=== PATIENT | female | born 1990 | race Caucasian/White ===

== ENCOUNTER → 2016-10-24 | Outpatient (CLI) | payer OTHER ==
[~2016-10-24] MED LIST: COLACE100 MG PO
[2016-10-24 15:31] LABS: HEMOGLOBIN 13.8 gm/dl (12.3-15.3); RED BLOOD COUNT 4.51 M/UL (4.00-5.10); WHITE BLOOD COUNT 10.9 K/UL (4.5-11.0)
[2016-10-24 15:54] LABS: BUN/CREATININE RATIO 15 (0-10)
== END ==
LOC: US 14:24
PROVIDERS: Nurse Practitioner Family
DX: Z13.29 Encounter for screening for other suspected endocrine disorder (principal); R00.2 Palpitations; F41.1 Generalized anxiety disorder
CPT/HCPCS: 36415; 76536; 80053; 84443; 85027

== ENCOUNTER → 2020-08-18 | Outpatient (CLI) | payer OTHER ==
[~2020-08-18] MED LIST changes: +CRANBERRY SUPPLEMENT PO; +ESTRADIOL1 MG PO; +KLONOPIN1 MG PO; +LINZESS145 MCG PO; +NORCO 10-325 T1 EACH PO; +OMEPRAZOLE20 M1 PO; +RIZATRIPTAN10 MG PO; +ZOFRAN4 MG PO; +ZOLOFT50 MG PO
== END ==
LOC: KOH-I 08-11 14:30
DX: G43.909 Migraine, unspecified, not intractable, without status migrainosus (principal); R51.9 Headache, unspecified; R11.0 Nausea
CPT/HCPCS: 70551

== ENCOUNTER 2022-01-22 09:04 | Emergency (ER) | payer OTHER ==
[2022-01-22 11:29] LABS: HEMOGLOBIN 13.5 gm/dl (12.3-15.3); RED BLOOD COUNT 4.48 M/UL (4.00-5.10); WHITE BLOOD COUNT 15.4 K/UL (4.5-11.0)
[2022-01-22 11:30] LABS: BUN/CREATININE RATIO 16 (0-10)
[2022-01-22] MEDS ORDERED: BENTYL 20MG TAB20 MG PO (13:16)
[2022-01-22] MEDS ORDERED: ZOFRAN ODT 4 MG4 MG PO (13:16)
== END 2022-01-22 14:09 | disposition home or self-care (01) ==
LOC: ER1 09:04
PROVIDERS: Physician Assistant
DX: G43.909 Migraine, unspecified, not intractable, without status migrainosus (principal); K52.9 Noninfective gastroenteritis and colitis, unspecified; E78.5 Hyperlipidemia, unspecified; K21.9 Gastro-esophageal reflux disease without esophagitis; Z88.6 Allergy status to analgesic agent; Z20.822 Contact with and (suspected) exposure to COVID-19
CPT/HCPCS: 80053; 81001; 83690; 85025; 96374; 96375; 99284; J1100; J1200; J2704; J2765; Q9967; U0002

== ENCOUNTER 2022-03-27 09:22 | Emergency (ER) | payer OTHER ==
[~2022-03-27 09:22] MED LIST changes: +BENTYL 20MG TAB20 MG PO; +ZOFRAN ODT 4 MG4 MG PO
[2022-03-27 10:28] LABS: HEMOGLOBIN 13.8 gm/dl (12.3-15.3); RED BLOOD COUNT 4.5 M/UL (4.00-5.10); WHITE BLOOD COUNT 14.5 K/UL (4.5-11.0)
[2022-03-27] MEDS ORDERED: CEPHALEXIN500 M1 PO (10:45)
== END 2022-03-27 10:56 | disposition home or self-care (01) ==
LOC: ER1 09:22
PROVIDERS: Nurse Practitioner
DX: L03.012 Cellulitis of left finger (principal); F17.200 Nicotine dependence, unspecified, uncomplicated; Z88.6 Allergy status to analgesic agent
CPT/HCPCS: 85025; 99283